=== PATIENT | male | born 1975 | race Caucasian/White ===

== ENCOUNTER → 2019-01-22 | Day surgery (SDC) | payer OTHER ==
[~2019-01-22] MED LIST: ACETAMINOPHEN325 M1 PO; BUPIVACAINE HCL 0.5% INJ 30 ML VIAL INJ ONE; CEFAZOLIN SOD 1 GM/NS 50ML 50 ML IV ONE; DEXAMETHASONE SOD PHOS INJ 4 MG/ML VIAL ONE; FENTANYL CITRATE/PF 100MCG/2 ML INJ ONE; KETOROLAC TROMETHAMINE 30 MG/ML VIAL ONE; LIDOCAINE HCL 2% LOCAL INJ 5 ML SDV VIAL INJ ONE; MIDAZOLAM HCL 2 MG/2 ML VIAL ONE; MORPHINE SULFATE INJ 4 MG/ML INJ 1ML ONE; MUPIROCIN 2% OINT 22 GM TUBE ONE; ONDANSETRON HCL INJ 2MG/ML 2ML 2 MG/ML VIAL ONE; PROPOFOL IV EMULSION 10 MG/ML 20 ML VIAL ONE; SEVOFLURANE INHAL SOLN 250 ML PEN BTL ONE
[2019-01-22 10:15] VITALS: BP 117/85
--- NOTE | 2019-01-22 11:22 | Operative Report ---
DATE OF PROCEDURE: 01/22/2019 SURGEON: Ricki Delatorre MD BELT SEWER: Joshua Dillon, certified PA. PREOPERATIVE DIAGNOSIS: Right distal biceps tendon rupture. POSTOPERATIVE DIAGNOSIS: Right distal biceps tendon rupture. PROCEDURE: Repair of right distal biceps tendon. INDICATIONS: The patient is a 43-year-old gentleman, who ruptured his right distal biceps tendon while lifting something heavy. The clinic exam and MRI findings were consistent with a slightly retracted complete avulsion of the biceps tendon. The findings and options have been discussed. He would like to have this repaired. The risks and benefits and lengthy recovery have been explained. He states he understands and wishes to proceed. PROCEDURE IN DETAIL: The patient was brought to the operating room and placed under general anesthetic. He received prophylactic antibiotics in the holding area. His right upper extremity was prepped and draped in a sterile manner. A preoperative time-out was performed. A sterile tourniquet was placed on the upper arm. The extremity was exsanguinated and the tourniquet was inflated to 250 mmHg. An incision was just made just distal to the flexion crease of the right elbow, this was seated to the radial side. The distal end of the biceps could be palpated in the subcutaneous tissue. With some retraction and blunt dissection, I was able to retrieve the end of the tendon. A whipstitch was placed into the end of the tendon, this was a FiberWire stitch. The bulbous granulation tissue at the end of the tendon was carefully debrided. A whisper of the tendon allowed easy tracking down to the radial tuberosity, this was decorticated with a small Edwards elevator. Care was taken to avoid injury to the superficial branches of the cutaneous nerves. An Arthrex distal biceps tendon repair system was used. A guide pin was placed across the radial tuberosity, this was over-reamed with a 7 mm reamer. A button was attached to the end of the FiberWire stitches, this was passed through the far cortex. The guide pin had been over-reamed with a 7 mm reamer, this correlated to the size of the distal end of the tendon. With the elbow flexed, the end of the tendon was buried into the radial tuberosity. Early securing knot was applied. A tapered free needle was then used to place additional whipstitches into the tendon, these were further secured. I preferred to do this rather than use the bioabsorbable interference screw for fear of cortical breakage. The tendon was noted to be nicely buried and when the elbow was put through range of motion, there was no shifting or movement of the tendon at its insertion, this wound was irrigated. A small venous bleeder was electrocauterized. The skin was then closed with subcuticular Vicryl and a running nylon stitch. A 10 mL of 0.5% Marcaine without epinephrine was injected around the incision. A sterile bandage and a posterior splint were applied. The patient was extubated and transported to the recovery room in stable condition. There was no blood loss and all needle and sponge counts were correct. Ricki Delatorre MD DR/NOLVIA /[id number]
== END | disposition home or self-care (01) ==
LOC: OR 05:44
PROVIDERS: ATTEND Specialist
DX: S46.211A Strain of muscle, fascia and tendon of other parts of biceps, right arm, initial encounter (principal); X50.0XXA Overexertion from strenuous movement or load, initial encounter; Y92.009 Unspecified place in unspecified non-institutional (private) residence as the place of occurrence of the external cause; Y99.8 Other external cause status; Z01.810 Encounter for preprocedural cardiovascular examination; Z68.32 Body mass index [BMI] 32.0-32.9, adult
CPT/HCPCS: 24342; 93005; C1713; J0690; J1100; J1885; J2001; J2250; J2270; J2405; J2704; J3010